=== PATIENT | male | born 1965 | race Caucasian/White ===

== ENCOUNTER 2024-10-10 17:46 | Inpatient (IN) | payer OTHER ==
[~2024-10-10] VITALS: Ht 175.3 cm; Wt 112.9 kg
[2024-10-10 18:25] LABS: IMMATURE GRANULOCYTE ABSOLUTE 0.03 K/uL (0-1); NUCLEATED RED BLOOD CELLS 0.0 % (0.0-0.19); PLATELET COUNT (AUTO) 225 K/uL (130-400); RED BLOOD CELL COUNT(AUTO) 5.14 MIL/uL (4.50-6.20); RED CELL DISTRIBUTION WIDTH 12.8 % (11.0-15.5); WHITE BLOOD COUNT (AUTO) 7.7 K/uL (4.8-10.8)
[2024-10-10 18:34] LABS: CREATININE 0.7 mg/dL (0.5-1.3); GLOMERULAR FILTR. RATE CALC 105.0 mL/min (>90); GLUCOSE,RANDOM 219.0 mg/dL (70-105); SODIUM SERUM 139.0 mmol/L (136-145); UREA NITROGEN, BLOOD 8.0 mg/dL (7-18)
--- NOTE | 2024-10-10 18:48 | HMCIMG ---
EXAM: CT Head Without IV contrast. CLINICAL HISTORY: Slurred speech, extremity numbness TECHNIQUE: Axial computed tomography images of the head/brain without intravenous contrast. COMPARISON: None provided. FINDINGS: BRAIN: Atrophy slightly greater than expected for patient's age No evidence of acute hemorrhage. No mass lesion. No CT evidence for acute territorial infarct. No midline shift or extra-axial collections. VENTRICLES: No hydrocephalus. ORBITS: The orbits are unremarkable. SINUSES AND MASTOIDS: The paranasal sinuses and mastoid air cells are clear. BONES: No fracture. SOFT TISSUES: Unremarkable. IMPRESSION: No acute intracranial abnormality. /[place]
[2024-10-10 19:36] LABS: APPEARANCE,URINE CLEAR (CLEAR); GLUCOSE, URINE (UA) 30 mg/dL (NEGATIVE); LEUKOCYTE ESTERASE ,URINE NEGATIVE Leu/uL (NEGATIVE); NITRATE,URINE NEGATIVE (NEGATIVE); OCCULT BLOOD,URINE NEGATIVE (NEGATIVE)
[2024-10-10 19:42] LABS: AMPHET/METH SCREEN,URINE NEGATIVE (NEGATIVE); BARBITURATE SCREEN, URINE NEGATIVE (NEGATIVE); CANNABINOID SCREEN,URINE NEGATIVE (NEGATIVE); COCAINE SCREEN,URINE NEGATIVE (NEGATIVE)
--- NOTE | 2024-10-10 20:05 | ERN ---
General Chief Complaint: Numbness Stated Complaint: PARESTHESIA Time Seen by MD: 17:52 Time Seen by Midlevel: 17:52 Source: patient History of Present Illness Initial Comments 59-year-old male presents to the emergency due to numbness onset two days. Patient reports upper extremity numbness and weakness, decreased sensation to the face, headache, slurred speech. Patient's friend at bedside stating that this is not his usual self and that patient is talking slow. Patient denies any chest pain, difficulty breathing, vision change or further associated symptoms. Patient states he has a history of DM and HTN but does not have a primary care doctor in the [facility] therefore gets his medication from [place]. Allergies: Coded Allergies: No Known Allergies (Unverified Allergy, Unknown, 10/10/24) Past Medical History Past Medical History: Diabetes-Type II Past Surgical History: None ROS Dictation Constitutional: Negative for fever,chills, and weight loss Eyes: Negative for injury, pain,redness, and discharge ENT: Negative for injury,pain or swelling Cardiovascular: Negative for chest pain, palpitations, and edema Respiratory: Negative for shortness of breath, cough, and wheezing, Abdomen/GI: Negative for abdominal pain, nausea, vomiting, diarrhea, and co nstipation Back: Negative for injury and pain : Negative for painful urination, bleeding or discharge MS/Extremity: Negative for injury and deformity Skin: Negative for rash, and discoloration Neuro: Positive for headache, generalized weakness, upper extremity numbness. Negative for tingling, and seizure Psych: Negative for suicide ideation, homicidal ideation, and hallucinations Physical Exam Physical Exam Dictation General: awake, alert, no acute distress Head/Face: Normocephalic, atraumatic Eyes: PERRL, EOMI, normal conjunctiva ENT: oral cavity clear, oral mucosa moist Neck: Supple, normal range of motion Cardiovascular: RRR, normal S1/S2 Respiratory: CTAB, no respiratory distress, no rales or wheezes Abdomen: Soft, non-tender, non-distended, no guarding or rebound. Skin: Warm, dry, normal turgor, no rash MS/Extremity: Pulses equal, no cyanosis, neurovascular intact, FROM Neuro: COAx4, GCS 15, strength 5/5, CN 2-12 intact, normal cerebellar exam Psych: Normal behavior, mood, and affect normal Results Laboratory and Microbiology Lab and Micro Result Laboratory Tests Test 10/10/24 18:12 10/10/24 19:13 White Blood Count 7.7 K/uL (4.8-10.8) Red Blood Count 5.14 MIL/uL (4.50-6.20) Hemoglobin 15.5 g/dL (14.0-18.0) Hematocrit 45.5 % (42-54) Mean Corpuscular Volume 88.5 fL (79-99) Mean Corpuscular Hemoglobin 30.2 pg (27.0-33.0) Mean Corpuscular Hemoglobin Concent 34.1 g/dL (32.0-36.0) Red Cell Distribution Width 12.8 % (11.0-15.5) Platelet Count 225 K/uL (130-400) Mean Platelet Volume 10.1 fL (7.5-10.5) Immature Granulocyte % (Auto) 0.4 % (0-1) Neutrophils (%) (Auto) 56.5 % (40.0-77.0) Lymphocytes (%) (Auto) 34.9 % (21.0-51.0) Monocytes (%) (Auto) 6.6 % (3.0-13.0) Eosinophils (%) (Auto) 1.2 % (0.0-8.0) Basophils (%) (Auto) 0.4 % (0.0-5.0) Neutrophils # (Auto) 4.4 K/uL (1.8-7.7) Lymphocytes # (Auto) 2.7 K/uL (1.0-4.8) Monocytes # (Auto) 0.5 K/uL (0.1-1.0) Eosinophils # (Auto) 0.09 K/uL (0.00-0.70) Basophils # (Auto) 0.03 K/uL (0.00-0.20) Absolute Immature Granulocyte (auto 0.03 K/uL (0-1) Nucleated Red Blood Cells 0.0 % (0.0-0.19) Sodium Level 139 mmol/L (136-145) Potassium Level 4.4 mmol/L (3.5-5.1) Chloride Level 102 mmol/L (101-111) Carbon Dioxide Level 33 mmol/L (21-32) H Blood Urea Nitrogen 8 mg/dL (7-18) Creatinine 0.7 mg/dL (0.5-1.3) Glomerular Filtration Rate Calc 105 mL/min (>90) Random Glucose 219 mg/dL (70-105) H Total Calcium 9.3 mg/dL (8.5-10.1) Troponin I High Sensitivity 7 ng/L (4-75) Urine Color LIGHT-YELLOW (YELLOW) Urine Appearance CLEAR (CLEAR) Urine pH 6.0 (5.0-8.0) Urine Specific [place] 1.007 (1.001-1.031) Urine Protein NEGATIVE mg/dL (NEGATIVE) Urine Glucose (UA) 30 mg/dL (NEGATIVE) H Urine Ketones NEGATIVE mg/dL (NEGATIVE) Urine Occult Blood NEGATIVE (NEGATIVE) Urine Nitrate NEGATIVE (NEGATIVE) Urine Bilirubin NEGATIVE mg/dL (NEGATIVE) Urine Urobilinogen 0.2 mg/dL (0.2-1.0) Urine Leukocyte Esterase NEGATIVE Hiram/uL Urine Opiates Screen NEGATIVE (NEGATIVE) Urine Barbiturates Screen NEGATIVE (NEGATIVE) Urine Phencyclidine Screen NEGATIVE (NEGATIVE) Urine Amphetamines Screen NEGATIVE (NEGATIVE) Urine Benzodiazepines Screen NEGATIVE (NEGATIVE) Urine Cocaine Screen NEGATIVE (NEGATIVE) Urine Marijuana (THC) Screen NEGATIVE (NEGATIVE) Labs Reviewed?: Yes EKG/XRAY/US/CT/MRI EKG Comment Date: 10/10/2024 Time: 1758 Rate: 93 EKG interpretation: Sinus rhythm, inferior infarct old, no STEMI Reviewed by ED Attending CT Scan Comment REASON: Slurred speech, extremity numbness ORDERING PHYSICIAN: CARRIE GONSALEZ PROCEDURE: HEAD WO - CT HEAD/BRAIN W/O CONTRAST EXAM: CT Head Without IV contrast. CLINICAL HISTORY: Slurred speech, extremity numbness TECHNIQUE: Axial computed tomography images of the head/brain without intravenous contrast. COMPARISON: None provided. FINDINGS: BRAIN: Atrophy slightly greater than expected for patient's age No evidence of acute hemorrhage. No mass lesion. No CT evidence for acute territorial infarct. No midline shift or extra-axial collections. VENTRICLES: No hydrocephalus. ORBITS: The orbits are unremarkable. SINUSES AND MASTOIDS: The paranasal sinuses and mastoid air cells are clear. BONES: No fracture. SOFT TISSUES: Unremarkable. IMPRESSION: No acute intracranial abnormality. /[place] DICTATED BY: GERI TIRADO MDM: Differential diagnosis: CVA, TIA, neuropathy Rationale: 59-year-old male presents to the emergency due to numbness onset two days. Patient reports upper extremity numbness and weakness, decreased sensation to the face, headache, slurred speech. Patient's friend at bedside stating that this is not his usual self and that patient is talking slow. Patient denies any chest pain, difficulty breathing, vision change or further associated symptoms. Patient states he has a history of DM and HTN but does not have a primary care doctor in the [place] states therefore gets his medication from [place]. Per physical examination no neurological deficits noted. NIH score of 0. Labs obtained CBC and chemistry are nonspecific. Troponin within normal limits. UA negative for urinary tract infection. Toxicology screen negative. On initial vitals patient's blood pressure was 188/93 on recheck patient's blood pressure was 154/82. Patient stated he was very nervous upon arrival and has been having a lot of stress. CT head obtained indicating atrophy slightly greater than expected for patient's age otherwise no acute intracranial abnormalities. Patient was administered acetaminophen due to a headache. Patient was educated on findings, diagnosis, decision for admission. Patient verbalized understanding agrees with admission. Case was discussed with hospitalist who accepted admission. Previous outside records reviewed: Old ER visits. Risk of complication and/or morbidity or mortality of patient management: None Medications-Per medication reconciliation Need for hospitalization: Patient does meet criteria for hospitalization. Need for emergency major/minor surgery: No There are no social concerns with this patient. Prescription drug management Prescriptions will include symptomatic care Patient's prior external medical records from other ER visits were reviewed by me as indicated. Prior testing and results from previous visits were reviewed. Prior tests were taken into account with medical decision making and resource utilization, independent historian/historians were used to obtain complete medical history. I independently interpreted the test that were performed, results were reviewed by me and considered findings on radiology if ordered. Medical management and examination interpretation discussions were had by me with other qualified healthcare professionals as indicated for the patient's care. ED Course Orders Procedure Category Date Status Time Cbc With Differential LAB 10/10/24 Complete 18: Basic Metabolic Panel LAB 10/10/24 Complete 18: Urinalysis LAB 10/10/24 In Process W/Microscopic 18:02 Drug Screen Urine LAB 10/10/24 In Process 18:02 Ct Head/Brain W/O CT 10/10/24 Resulted Contrast 18:02 12 Lead Ekg Tracing- EKG 10/10/24 Logged Technical 18:02 Troponin I High LAB 10/10/24 Complete Sensitivity 18:02 Hydralazine 20mg Inj PHA 10/10/24 Complete (Apresoline 20mg In 19:30 Current Medications Medications (Trade) Dose Ordered Sig/Liudmila Route PRN Reason Start Time Stop Time Status Last Admin Dose Admin Hydralazine HCl (APRESOLine 20MG INJ) 10 mg ONCE ONCE IV 10/10/24 19:30 10/10/24 19:31 DC Vital Signs Date Time Temp Pulse Resp B/P (MAP) Pulse Ox O2 Delivery O2 Flow Rate FiO2 10/10/24 19:17 99.1 84 18 154/82 98 Room Air* 0 21 10/10/24 17:48 99.0 93 16 188/93 98 Room Air 0 Critical Care Note Critical Time: 30 minutes Comments Critical Care Procedure Note Authorized and Performed by: me Total critical care time: Approximately 36 minutes Due to a high probability of clinically significant, life threatening deterioration, the patient required my highest level of preparedness to intervene emergently and I personally spent this critical care time directly and personally managing the patient. This critical care time included obtaining a history; examining the patient; pulse oximetry; ordering and review of studies; arranging urgent treatment with development of a management plan; evaluation of patient's response to treatment; frequent reassessment; and, discussions with other providers. This critical care time was performed to assess and manage the high probability of imminent, life-threatening deterioration that could result in multi-organ failure. It was exclusive of separately billable procedures and treating other patients and teaching time. Please see MDM section and the rest of the note for further information on patient assessment and treatment. DX & DISP Disposition: Inpatient Decision to Admit Date: Oct 10, 2024 Departure Impression: Primary Impression: Stroke-like symptoms Condition: Stable Referrals: SELF,REFERRAL (PCP) I performed the substantive portion of the visit. I have reviewed and personally made and approve the management plan that is documented in the notes by myself or the [facility]. I acknowledge full responsibility for the patient's management plan. CARRIE GONSALEZ Oct 10, 2024 20:05
[2024-10-10 20:11] LABS: SQUAMOUS EPITHELIAL CELL,UR RARE /HPF (0-2)
--- NOTE | 2024-10-10 21:31 | HP ---
[facility] HISTORY AND PHYSICAL Date of Service: Oct 10, 2024 Time of Service: 21:31 Attending/supervising physician: Dr. Perdue and Dr. Carroll HISTORY OF PRESENT ILLNESS: Mr. Escobar is a 59-year-old male with a history of HTN, dm, history of left ear infections, seasonal allergies with chronic nose spray, and chronic lower back pain use who presented to [facility] for evaluation of stroke-like symptoms onset two days. The patient reported of numbness and weakness to bilateral upper extremity, decreased sensation to the face, headache, slurred speech onset two days. Patient's friend at bedside stating that this is not his usual self and that patient is talking slow. Patient denied any chest pain, difficulty breathing, vision change or further associated symptoms. Patient stated but does not have a primary care doctor in the [facility] therefore gets his medication from [place]. The patient's friend reports decreased appetite after Tirzepatide use which he got at [place]. ED provider reports on arrival the patient stated he was very nervous and has been having a lot of stress. Initial vitals patient's blood pressure was 188/93 on recheck patient's blood pressure was 154/82. The patient had no neurological deficits noted. NIH score of 0. Labs: CBC and chemistry are nonspecific. Troponin within normal limits. UA negative for urinary tract infection. Toxicology screen negative. CT head obtained indicating atrophy slightly greater than expected for patient's age otherwise no acute intracranial abnormalities. Patient was administered acetaminophen due to a headache. ED provider request patient be admitted with stroke-like symptoms. The patient was admitted under the [facility] Hospitalist team. I assessed the patient at bedside. Significant other was at bedside. The patient's breathing was even, unlabored, in no distress. NIH 0. He reported he is still had numbness and tingling to the tip of his fingers. Denied any other neurological deficits. I informed him of labs, diagnostics, and plan of care. He verbalized understanding and is in agreement with the plan. Plan and assessment are listed below. REVIEW OF SYSTEMS 12-point ROS reviewed with the patient. All pertinent positives mentioned above. Otherwise negative, noncontributory, non-pertinent. PAST MEDICAL HISTORY: As mentioned above PAST SURGICAL HISTORY: None PAST SOCIAL HISTORY: Denied alcohol, tobacco, illicit drug use. FAMILY HISTORY: Noncontributory Coded Allergies: No Known Allergies (Unverified Allergy, Unknown, 10/10/24) PHYSICAL EXAM GENERAL APPEARANCE: The patient is awake, alert, and oriented, in no acute cardiopulmonary distress. NEUROLOGICAL: Cranial nerves II-XII grossly intact. Motor is 5/5 in bilateral upper and lower extremities proximal to distal. No sensory deficits. HEENT: Face is symmetric. Pupils are equal and reactive. Extraocular movements are intact. NECK: Supple. No JVD. No thyromegaly. No submental, submandibular, pre- /postauricular, occipital or supraclavicular lymphadenopathy. CHEST: Normal chest expansion. No Telemetry. LUNGS: Absence of any rales, rhonchi or any wheezing. CARDIOVASCULAR: Regular. S1 and S2 normal. No appreciable rubs, murmurs or gallops. ABDOMEN: Soft, obese, nontender, and nondistended. There is no rebound, voluntary guarding, or rigidity. : Deferred. No Keith. EXTREMITIES: Non-edematous and not cyanotic. No clubbing. Good capillary refill. SKIN: No skin breakdown. Vital Sign (Last 24 Hours) 10/10/24 20:19 Temp 98.8 Pulse 81 Resp 18 B/P (MAP) 140/83 Pulse Ox 98 O2 Delivery Room Air* O2 Flow Rate 0 FiO2 21 LABS: Laboratory: Test 10/10/24 19:13 10/10/24 18:12 Range/Units Urine Color LIGHT-YELLOW YELLOW Urine Appearance CLEAR CLEAR Urine pH 6.0 5.0-8.0 Urine Specific [place] 1.007 1.001-1.031 Urine Protein NEGATIVE NEGATIVE mg/dL Urine Glucose (UA) 30 H NEGATIVE mg/dL Urine Ketones NEGATIVE NEGATIVE mg/dL Urine Occult Blood NEGATIVE NEGATIVE Urine Nitrate NEGATIVE NEGATIVE Urine Bilirubin NEGATIVE NEGATIVE mg/dL Urine Urobilinogen 0.2 0.2-1.0 mg/dL Urine Leukocyte Esterase NEGATIVE NEGATIVE Hiram/uL Urine RBC None 0-1 /HPF Urine WBC 0-1 0-1 /HPF Urine Squamous Epithelial Cells RARE 0-2 /HPF Urine Bacteria None None Seen /HPF Urine Opiates Screen NEGATIVE NEGATIVE Urine Barbiturates Screen NEGATIVE NEGATIVE Urine Phencyclidine Screen NEGATIVE NEGATIVE Urine Amphetamines Screen NEGATIVE NEGATIVE Urine Benzodiazepines Screen NEGATIVE NEGATIVE Urine Cocaine Screen NEGATIVE NEGATIVE Urine Marijuana (THC) Screen NEGATIVE NEGATIVE White Blood Count 7.7 4.8-10.8 K/uL Red Blood Count 5.14 4.50-6.20 MIL/uL Hemoglobin 15.5 14.0-18.0 g/dL Hematocrit 45.5 42-54 % Mean Corpuscular Volume 88.5 79-99 fL Mean Corpuscular Hemoglobin 30.2 27.0-33.0 pg Mean Corpuscular Hemoglobin Concent 34.1 32.0-36.0 g/dL Red Cell Distribution Width 12.8 11.0-15.5 % Platelet Count 225 130-400 K/uL Mean Platelet Volume 10.1 7.5-10.5 fL Immature Granulocyte % (Auto) 0.4 0-1 % Neutrophils (%) (Auto) 56.5 40.0-77.0 % Lymphocytes (%) (Auto) 34.9 21.0-51.0 % Monocytes (%) (Auto) 6.6 3.0-13.0 % Eosinophils (%) (Auto) 1.2 0.0-8.0 % Basophils (%) (Auto) 0.4 0.0-5.0 % Neutrophils # (Auto) 4.4 1.8-7.7 K/uL Lymphocytes # (Auto) 2.7 1.0-4.8 K/uL Monocytes # (Auto) 0.5 0.1-1.0 K/uL Eosinophils # (Auto) 0.09 0.00-0.70 K/uL Basophils # (Auto) 0.03 0.00-0.20 K/uL Absolute Immature Granulocyte (auto 0.03 0-1 K/uL Nucleated Red Blood Cells 0.0 0.0-0.19 % Sodium Level 139 136-145 mmol/L Potassium Level 4.4 3.5-5.1 mmol/L Chloride Level 102 101-111 mmol/L Carbon Dioxide Level 33 H 21-32 mmol/L Blood Urea Nitrogen 8 7-18 mg/dL Creatinine 0.7 0.5-1.3 mg/dL Glomerular Filtration Rate Calc 105 >90 mL/min Random Glucose 219 H 70-105 mg/dL Total Calcium 9.3 8.5-10.1 mg/dL Troponin I High Sensitivity 7 4-75 ng/L DIAGNOSTICS / RADIOLOGY: [ ] ASSESSMENT: Stroke-like symptoms (paresthesia and weakness to BUE, reported slow/slurred speech, decreased sensation to the face, headache) Atrophy slightly greater than expected for patient's age, per CT of head without contrast on 10/10/2024 Acute headache, POA Diabetes mellitus with hyperglycemia Anorexia, POA, recent Tirzepatide use Elevated bicarbonate per venous lab on 10/10/2021 Uncontrolled hypertension History of left ear infection History of chronic seasonal allergies/nasal congestion on chronic nasal spray Anxiety reaction Chronic lower back pain Obesity, BMI 36.2 PLAN: -Admit to medical floor with continuous telemetry monitoring. -Neurological checks every 4 hours and as needed. -Antiplatelet therapy with Aspirin. -Atorvastatin 40 mg p.o. daily. -Blood pressure checks every 4 hours and as needed. -Systolic blood pressure between 120 to 160 to maintain adequate brain perfusion. -Keep NPO for now until passes dysphagia screen by nurse. -MRI of brain without contrast. MRA head without contrast, MRA neck pending to be done in a.m. -Pending Echo complete with spectral + color Doppler to be done in am. -Consult neurology in a.m. -Obtain ABGs, COVID, influenza swabs. -Reconcile home medications once available. -Glucometer checks before meals and at bedtime with regular insulin sliding scale as needed -Education on diabetic/low fat diet. -PT/OT evaluation. -Speech/swallow evaluation -PRN medications for pain, N/V, constipation, fever, hypertension -AM labs: CBC, CMP, mag, phos, TSH, A1C, Vitamin B12, fibrinogen, folate level, lipid panel. -Monitor renal and liver function -Monitor electrolytes and treat accordingly PRN -GI and DVT prophylaxis. -Further plan/orders per hospitalization course. ADVANCED CARE PLANNING 1. Which of the following were discussed? Hospice Care - No Therapeutic options - Yes Advance Directives - Yes 2. Discussed with who? Patient 3. Voluntary nature of this service was explained to the patient? Yes 4. Amount of time spent - __ Over 35 minutes 5. Reviewed by Physician? (if this service was performed by [facility]) Yes ATTESTATION BY PHYSICIAN I have seen and examined the patient. I reviewed the documentation, medical decision making, and treatment plan as noted by the mid-level provider above. I agree with the findings and plan of care. KWAN BATRES [facility] Oct 10, 2024 21:31
[2024-10-10] MEDS: ASPIRIN 81MG CHEW TAB PO ONE (22:34)
[2024-10-10] MEDS: 0.9%NACL 1000ML 1,000 ML IV SCH (22:49)
[2024-10-11 02:12] LABS: ABG BASE EXCESS 0.4 mmol/L (-2.0-3.0); ABG HCO3 24.6 mmol/L (21.0-28.0); ABG OXYGEN SATURATION 95.2 % (94.0-98.0); ABG PCO2 38 mmHg (35-48); ABG PH 7.426 (7.350-7.450); DEVICE COMMENT ER RN, RR; PO2, ARTERIAL BG 73.9 mmHg (83.0-108.0); TEMPERATURE, CELSIUS BG 37.0 CELSIUS (35.5-37.0); VENT MODE, BG RA (ROOM AIR)
[2024-10-11 05:00] LABS: SARS-CoV-2, RNA, NAAT NEGATIVE SARS CoV-2 (NEGATIVE)
[2024-10-11 05:06] LABS: INFLUENZA TYPE A Negative For Type A (NEGATIVE); INFLUENZA TYPE B Negative For Type B (NEGATIVE)
--- NOTE | 2024-10-11 06:32 | EKG ---
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
[2024-10-11 07:08] LABS: NUCLEATED RED BLOOD CELLS 0.0 % (0.0-0.19); PLATELET COUNT (AUTO) 206.0 K/uL (130-400); RED BLOOD CELL COUNT(AUTO) 4.9 MIL/uL (4.50-6.20); RED CELL DISTRIBUTION WIDTH 12.9 % (11.0-15.5); WHITE BLOOD COUNT (AUTO) 6.6 K/uL (4.8-10.8)
[2024-10-11 08:00] LABS: ASPARTATE AMINOTRANSFERASE 10.0 U/L (10-37); CREATININE 0.7 mg/dL (0.5-1.3); GLOMERULAR FILTR. RATE CALC 105.0 mL/min (>90); GLUCOSE,RANDOM 175.0 mg/dL (70-105); LDL DIRECT 87.0 mg/dL (0-99); PHOSPHORUS 4.5 mg/dL (2.5-4.9); SODIUM SERUM 139.0 mmol/L (136-145); TOTAL PROTEIN, SERUM 6.8 g/dL (6.0-8.3); UREA NITROGEN, BLOOD 7.0 mg/dL (7-18)
[2024-10-11] MEDS: FAMOTIDINE 20MG TAB PO SCH (09:00)
[2024-10-11] MEDS: ASPIRIN 81MG CHEW TAB PO SCH (09:00)
--- NOTE | 2024-10-11 09:27 | NUR ---
DCP: HOME Pt currently lives with miguel angel Escobar [phone]. Pt states that he is originally from [place] however spends 6 months out the year here and then goes back. Pt states that he will be in the [place] until [place]. Pt does not have any DME, home health, or provider services. Pt states that he does not have a PCP nor has had one in about 10-12 years. Pt states that he is a and will consider trying to go to the [place] any care [place]. [place] pt will want to go home and family can assist with transportation. Addendum: 10/11/24 at 0930 by JASON SILVERIO SS Amended: Links added.
--- NOTE | 2024-10-11 11:35 | NUR ---
GAVE REPORT TO JOE YATES, PATIENT WAS TRANSPORTED VIA WHEELCHAIR ALONG WITH HIS PERSONAL BELONGINGS.
[2024-10-11 12:00] VITALS: BP 150/78; PULSE 86; RESP 19; TEMP 98
--- NOTE | 2024-10-11 12:00 | NUR ---
PT ARRIVED TO UNIT VIA WHEELCHAIR. DENIES ANY PAIN AT THE MOMENT. STATES HAS VERY MINIMAL TINGLING IN FINGERS. BED POSITIONED IN LOWEST POSITION CALL LIGHT WITH IN REACH. PT AWARE OF NPO. UNTIL BEDSIDE SWALLOW PASS.
--- NOTE | 2024-10-11 13:15 | PN ---
[facility] PROGRESS NOTE Date of Service: Oct 11, 2024 Time of Service: 13:[address] Gonzalez SUBJECTIVE: [10/10 Mr. Escobar is a 59-year-old male with a history of HTN, dm, history of left ear infections, seasonal allergies with chronic nose spray, and chronic lower back pain use who presented to [facility] for evaluation of stroke-like symptoms onset two days. The patient reported of numbness and weakness to bilateral upper extremity, decreased sensation to the face, headache, slurred speech onset two days. Patient's friend at bedside stating that this is not his usual self and that patient is talking slow. Patient denied any chest pain, difficulty breathing, vision change or further associated symptoms. Patient stated but does not have a primary care doctor in the [place] therefore gets his medication from [place]. The patient's friend reports decreased appetite after Tirzepatide use which he got at [place]. ED provider reports on arrival the patient stated he was very nervous and has been having a lot of stress. Initial vitals patient's blood pressure was 188/93 on recheck patient's blood pressure was 154/82. The patient had no neurological deficits noted. NIH score of 0. Labs: CBC and chemistry are nonspecific. Troponin within normal limits. UA negative for urinary tract infection. Toxicology screen negative. CT head obtained indicating atrophy slightly greater than expected for patient's age otherwise no acute intracranial abnormalities. Patient was administered acetaminophen due to a headache. ED provider request patient be admitted with stroke-like symptoms. The patient was admitted under the [facility] Hospitalist team. 10/11 patient was seen by nurse practitioner and physician during rounding in room 307. We will consult neurologist for possible TIA versus stroke. Home medication to be reconciled once entered by RN in the computer. Head CT, brain MRI, neck MRA brain MRA, 2D echo, ultrasound Doppler carotid is still pending. Neurologist was consulted. At this moment we are pending recommendation. We will continue to monitor patient in the meantime. A.m. labs] REVIEW OF SYSTEMS 12-point ROS reviewed with the patient. All pertinent positives mentioned above. Otherwise negative, noncontributory, non-pertinent. PHYSICAL EXAM GENERAL APPEARANCE: The patient is awake, alert, and oriented, in no acute cardiopulmonary distress. NEUROLOGICAL: Cranial nerves II-XII grossly intact. Motor is 5/5 in bilateral upper and lower extremities proximal to distal. No sensory deficits. HEENT: Face is symmetric. Pupils are equal and reactive. Extraocular movements are intact. NECK: Supple. No JVD. No thyromegaly. No submental, submandibular, pre- /postauricular, occipital or supraclavicular lymphadenopathy. CHEST: Normal chest expansion. No Telemetry. LUNGS: Absence of any rales, rhonchi or any wheezing. CARDIOVASCULAR: Regular. S1 and S2 normal. No appreciable rubs, murmurs or gallops. ABDOMEN: Soft, obese, nontender, and nondistended. There is no rebound, voluntary guarding, or rigidity. : Deferred. No Keith. EXTREMITIES: Non-edematous and not cyanotic. No clubbing. Good capillary refill. SKIN: No skin breakdown. Vital Signs (last 8hr) Date Time Temp Pulse Resp B/P (MAP) Pulse Ox O2 Delivery O2 Flow Rate FiO2 10/11/24 12:00 98.1 86 19 150/78 98 Room Air LABS: Laboratory: Test 10/11/24 06:42 10/11/24 04:35 10/11/24 02:11 10/10/24 19:13 Range/Units White Blood Count 6.6 4.8-10.8 K/uL Red Blood Count 4.90 4.50-6.20 MIL/uL Hemoglobin 14.7 14.0-18.0 g/dL Hematocrit 44.4 42-54 % Mean Corpuscular Volume 90.6 79-99 fL Mean Corpuscular Hemoglobin 30.0 27.0-33.0 pg Mean Corpuscular Hemoglobin Concent 33.1 32.0-36.0 g/dL Red Cell Distribution Width 12.9 11.0-15.5 % Platelet Count 206 130-400 K/uL Mean Platelet Volume 10.0 7.5-10.5 fL Nucleated Red Blood Cells 0.0 0.0-0.19 % Fibrinogen 446 H 180-350 mg/dL Sodium Level 139 136-145 mmol/L Potassium Level 3.7 3.5-5.1 mmol/L Chloride Level 102 101-111 mmol/L Carbon Dioxide Level 31 21-32 mmol/L Blood Urea Nitrogen 7 7-18 mg/dL Creatinine 0.7 0.5-1.3 mg/dL Glomerular Filtration Rate Calc 105 >90 mL/min Random Glucose 175 H 70-105 mg/dL Total Calcium 8.8 8.5-10.1 mg/dL Phosphorus Level 4.5 2.5-4.9 mg/dL Magnesium Level 1.70 L 1.80-2.40 mg/dL Total Bilirubin 0.8 0.2-1.0 mg/dL Aspartate Amino Transf (AST/SGOT) 10 10-37 U/L Alanine Aminotransferase (ALT/SGPT) 14 12-78 U/L Alkaline Phosphatase 63 50-136 U/L Total Protein 6.8 6.0-8.3 g/dL Albumin 3.4 L 3.5-5.0 g/dL Triglycerides Level 175 30-200 mg/dL Cholesterol Level 152 <200 mg/dL LDL Cholesterol 87 0-99 mg/dL HDL Cholesterol 45 29-71 mg/dL Vitamin B12 Level 1586 H 193-986 pg/mL Folic Acid (LAB) 14.40 2-20 ng/mL Thyroid Stimulating Hormone (TSH) 3.65 0.36-3.74 uIU/mL Influenza Type A Antigen Negative For Type A NEGATIVE Influenza Type B Antigen Negative For Type B NEGATIVE SARS-CoV-2, RNA, NAAT NEGATIVE SARS CoV-2 NEGATIVE Blood Gas Specimen Type Arterial Arterial Blood pH 7.426 7.350-7.450 Arterial Blood Partial Pressure CO2 38 35-48 mmHg Arterial Blood Partial Pressure O2 73.9 L 83.0-108.0 mmHg Arterial Blood HCO3 24.6 21.0-28.0 mmol/L Arterial Blood Oxygen Saturation 95.2 94.0-98.0 % Arterial Blood Base Excess 0.4 -2.0-3.0 mmol/L Blood Gas Temperature 37.0 35.5-37.0 CELSIUS Blood Gas Vent Mode RA ROOM AIR FiO2 21.0 % Blood Gas Specimen Comment SHIPFITTER APPRENTICE, RR Urine Color LIGHT-YELLOW YELLOW Urine Appearance CLEAR CLEAR Urine pH 6.0 5.0-8.0 Urine Specific [place] 1.007 1.001-1.031 Urine Protein NEGATIVE NEGATIVE mg/dL Urine Glucose (UA) 30 H NEGATIVE mg/dL Urine Ketones NEGATIVE NEGATIVE mg/dL Urine Occult Blood NEGATIVE NEGATIVE Urine Nitrate NEGATIVE NEGATIVE Urine Bilirubin NEGATIVE NEGATIVE mg/dL Urine Urobilinogen 0.2 0.2-1.0 mg/dL Urine Leukocyte Esterase NEGATIVE NEGATIVE Hiram/uL Urine RBC None 0-1 /HPF Urine WBC 0-1 0-1 /HPF Urine Squamous Epithelial Cells RARE 0-2 /HPF Urine Bacteria None None Seen /HPF Urine Opiates Screen NEGATIVE NEGATIVE Urine Barbiturates Screen NEGATIVE NEGATIVE Urine Phencyclidine Screen NEGATIVE NEGATIVE Urine Amphetamines Screen NEGATIVE NEGATIVE Urine Benzodiazepines Screen NEGATIVE NEGATIVE Urine Cocaine Screen NEGATIVE NEGATIVE Urine Marijuana (THC) Screen NEGATIVE NEGATIVE Test 10/10/24 18:12 Range/Units Immature Granulocyte % (Auto) 0.4 0-1 % Neutrophils (%) (Auto) 56.5 40.0-77.0 % Lymphocytes (%) (Auto) 34.9 21.0-51.0 % Monocytes (%) (Auto) 6.6 3.0-13.0 % Eosinophils (%) (Auto) 1.2 0.0-8.0 % Basophils (%) (Auto) 0.4 0.0-5.0 % Neutrophils # (Auto) 4.4 1.8-7.7 K/uL Lymphocytes # (Auto) 2.7 1.0-4.8 K/uL Monocytes # (Auto) 0.5 0.1-1.0 K/uL Eosinophils # (Auto) 0.09 0.00-0.70 K/uL Basophils # (Auto) 0.03 0.00-0.20 K/uL Absolute Immature Granulocyte (auto 0.03 0-1 K/uL Hemoglobin A1c 11.0 H 4.0-6.0 % Estimated Average Glucose (eAG) 269 H 70-126 mg/dL Troponin I High Sensitivity 7 4-75 ng/L Current Medications Medications (Trade) Dose Ordered Sig/Liudmila Route PRN Reason Start Time Stop Time Status Last Admin Dose Admin Acetaminophen (TYLenol 325MG TAB) 650 mg Q6H PRN PO FOR TEMP GREATER THAN 99.5 F* 10/10/24 22:30 11/09/24 22:29 Acetaminophen (TYLenol 325MG TAB) 650 mg Q6H PRN PO MILD PAIN (1-3) 10/10/24 22:30 11/09/24 22:29 Acetaminophen (TYLenol 650MG SUPPOSITORY) 650 mg Q6H PRN RC FOR MILD PAIN 1-3 IF NPO 10/10/24 22:30 11/09/24 22:29 Acetaminophen (TYLenol 650MG SUPPOSITORY) 650 mg Q6H PRN RC TEMP GREATER THEN 99.5 IF NPO 10/10/24 22:30 11/09/24 22:29 Aspirin (Aspirin 81mg Chew Tab) 81 mg DAILY PO 10/11/24 09:00 11/10/24 08:59 Atorvastatin Calcium (LIPItor 40MG) 40 mg HS PO 10/10/24 22:30 11/09/24 22:29 10/10/24 22:34 40 MG Docusate Sodium (COLace 100MG CAP) 100 mg BID PRN PO CONSTIPATION 10/10/24 22:30 11/09/24 22:29 Famotidine (Pepcid 20mg Tab) 20 mg BID PO 10/11/24 09:00 11/10/24 08:59 Magnesium Sulfate 50 ml @ 0 mls/hr PROTOCOL IV 10/11/24 13:30 11/10/24 13:29 UNV Ondansetron HCl (zoFRAN 4MG INJ) 4 mg Q8H PRN IVP NAUSEA/VOMITING 10/10/24 22:30 11/09/24 22:29 Sodium Chloride 1,000 ml @ 100 mls/hr AD IV 10/10/24 22:30 11/09/24 22:29 10/10/24 22:49 100 MLS/HR DIAGNOSTICS / RADIOLOGY: [ ] ASSESSMENT: Stroke-like symptoms (paresthesia and weakness to BUE, reported slow/slurred speech, decreased sensation to the face, headache) Atrophy slightly greater than expected for patient's age, per CT of head without contrast on 10/10/2024 Acute headache, POA Diabetes mellitus with hyperglycemia Anorexia, POA, recent Tirzepatide use Elevated bicarbonate per venous lab on 10/10/2021 Uncontrolled hypertension History of left ear infection History of chronic seasonal allergies/nasal congestion on chronic nasal spray Anxiety reaction Chronic lower back pain Obesity, BMI 36.2 PLAN: -continue in medical floor with continuous telemetry monitoring. Consult neurologist Replace magnesium and potassium per protocol -Neurological checks every 4 hours and as needed. -Antiplatelet therapy with Aspirin. -Atorvastatin 40 mg p.o. daily. -Blood pressure checks every 4 hours and as needed. -Systolic blood pressure between 120 to 160 to maintain adequate brain perfusion. -Keep NPO for now until passes dysphagia screen by nurse. -MRI of brain without contrast. Pending MRA head without contrast, pending MRA neck pending 2D echo pending Ultrasound carotid pending Head CT pending -Obtain ABGs, COVID, influenza swabs. -Reconcile home medications once available. -Glucometer checks before meals and at bedtime with regular insulin sliding scale as needed -Education on diabetic/low fat diet. -PT/OT evaluation. -Speech/swallow evaluation -PRN medications for pain, N/V, constipation, fever, hypertension -AM labs: CBC, CMP, mag, phos, TSH, A1C, Vitamin B12, fibrinogen, folate level, lipid panel. -Monitor renal and liver function -Monitor electrolytes and treat accordingly PRN -GI and DVT prophylaxis. -Further plan/orders per hospitalization course. ATTESTATION BY PHYSICIAN I have seen and examined the patient. I reviewed the documentation, medical decision making, and treatment plan as noted by the mid-level provider above. I agree with the findings and plan of care. ANDRZEJ GONZALEZ MD, KATARZYNA B LOCKSTITCH LINING SETTER Oct 11, 2024 13:15
[2024-10-11] MEDS ORDERED: DEXTROSE 50%-WATER 50 ML DISP.SYRIN IV PRN (13:30)
[2024-10-11] MEDS ORDERED: MAGNESIUM 2GM PREMIX 50ML 50 ML IV PRN (13:30)
[2024-10-11] MEDS ORDERED: PoTASSium chl 10% ELIXIR 20MEQ 20 MEQ/15 ML UDCUP PO PRN (13:30)
[2024-10-11] MEDS ORDERED: GLUCAGON 1MG KIT 1 MG ML IM PRN (13:30)
[2024-10-11] MEDS ORDERED: PoTASSium chloRIDE 20MEQ ER 20 MEQ ERTAB PO PRN (13:30)
[2024-10-11] MEDS ORDERED: amLODIPine 2.5 MG TAB PO SCH (13:30)
--- NOTE | 2024-10-11 15:15 | NUR ---
BEDSIDE SWALLOW EVAL COMPLETED. No s/s of aspiration. Recommend regular solids, thin liquids and pills whole with liquids as tolerated. APPLICATION INTERNSHIP reviewed results and recommendations with patient and nurse Yumi. APPLICATION INTERNSHIP educated patient on risks and consequences of aspiration. Speech therapy not warranted at this time. All questions answered. Addendum: 10/11/[address] SVITLANA ROMO Amended: Links added.
--- NOTE | 2024-10-11 15:20 | NUR ---
COGNITIVE-LINGUISTIC EVALUATION COMPLETED. WITHIN FUNCTIONAL LIMITS. EVALUATION: Pt AAOX4. SPEECH, LANGUAGE, AND COGNITIVE LINGUISTICS SKILLS ARE WITHIN FUNCTIONAL LIMITS. Pt REQUESTS WANTS AND NEEDS INDEPENDENTLY WITH CLEAR SPEECH INTELLIGIBILITY. Pt COMMUNICATING AT CONVERSATIONAL LEVEL WITH NO DEFICITS IDENTIFIED AT THIS TIME. Pt COMPLETED COGNITIVE-LINGUISTIC EVALUATION WITH CORRECT AND TIMELY ANSWERS. SPEECH THERAPY NOT WARRANTED. ALL QUESTIONS ANSWERED AT THIS TIME. AUTOMOTIVE PAINTER REVIEWED RESULTS AND RECOMMENDATIONS WITH PATIENT AND NURSE JOE. Addendum: 10/11/[address] SVITLANA ROMO Amended: Links added.
[2024-10-11 16:00] VITALS: BP 153/90; PULSE 75; RESP 19; TEMP 97.9
--- NOTE | 2024-10-11 16:04 | HMCSR ---
APPROVED REPORT EXAM: Two-dimensional and M-mode echocardiogram with Doppler and color Doppler. INDICATION ICD: CVA/TIA: 2D Dimensions RVDd3.8 cmLVEF(%)59.1 (>50%)LVED Vol(simp.)103.0 mL IVSd0.9 (0.7-1.1cm)FS(%)32 %LVES Vol(simp.)53.0 mL LVDd5.7 (3.8-5.6cm)LA (2D)4.5 (1.6-4.0cm)LVEF(%, simp.)49 % PWd1.1 (0.7-1.1cm)Ao Root(2D)2.8 (2.0-3.7cm)LA ESV INDEX (BP)32.69 mL/m2 LVDs3.9 (2.5-4.0cm)LVOT diam2.5 (1.8-2.4cm) IVC diam1.4 cm Deformation Strain Apical 4-15.1 % Apical 2-13.4 % Apical 3-15.4 % Global Strain-14.6 % M-Mode Dimensions EPSS1.1 cm LA (MM)4.5 (1.6-4.0cm) Ao Root(MM)2.8 (2.0-3.7cm) Aortic Valve AoV Vmax1.1 m/Laquita Peak GR5.1 mmHgLVOT Vmax0.9 m/s AoV VTI0.2 mAo Mean GR2.6 mmHgLVOT VTI0.19 m CORNELIUS (VMAX)3.76 cm2AVA (VTI) 4.6 cm2 Mitral Valve MV E Vmax54.3 cm/sDECEL Aigh898 ms MV A Vmax54.3 cm/sP 1/2 T90 ms E/A ratio1.0MVA (PHT)2.4 cm2 TDI E/E' Medial8.4E/E' Lateral8.5 Medial E' Peak V6.46 cm/sLateral E' Peak V6.40 cm/s Pulmonary Valve PV Vmax1.0 m/sPV VTI0.21 mPV Mean GR2.5 mmHg PV Peak GR4.0 mmHg Left Ventricle The left ventricle is normal size. There is normal LV segmental wall motion. There is normal left magdalene tricular wall thickness. LVEF is 50-55%. The left ventricular diastolic function is normal. Right Ventricle The right ventricle is normal size. The right ventricular systolic function is normal. Atria The left atrium size is normal. The right atrium size is normal. Aortic Valve The aortic valve is normal in structure. No aortic regurgitation is present. There is no aortic valvu lar stenosis. Mitral Valve The mitral valve is normal in structure. Mitral regurgitation is trace. There is no mitral valve sten osis. Tricuspid Valve The tricuspid valve is normal in structure. There is trace tricuspid valve regurgitation noted. Pulmonic Valve The pulmonary valve is normal in structure. There is no pulmonic valvular regurgitation. Great Vessels The aortic root is normal in size. The IVC is normal in size and collapses >50% with inspiration. Pericardium There is no pericardial effusion. Conclusion LVEF is 50-55%. There is normal LV segmental wall motion. The aortic root is normal in size. There is no pericardial effusion.
[2024-10-11] MEDS: PoTASSium chloRIDE 20MEQ ER 20 MEQ ERTAB PO ONE (16:41)
--- NOTE | 2024-10-11 19:05 | CONS ---
CONSULTATION NOTE Date of Service: Oct 11, 2024 Reason for Consultation: eval of paresthesias Requesting Physician: Dr Perdue HISTORY OF PRESENT ILLNESS: Mr. Escobar is a 59-year-old gentleman with a history of hypertension, diabetes mellitus type 2, left ear infections, seasonal allergies, and chronic lower back pain, who presented with numbness and weakness in bilateral upper extremities, decreased facial sensation, headache, and slurred speech that started 2 days prior to admission on October 10, 2024. The patient reports experiencing tingling in both hands, which lasted until the day before admission, accompanied by some stiffness and weakness but no pain. He also experienced lightheadedness but denies other symptoms such as blurry vision or dizziness. The patient's symptoms are non-focal, suggesting a blood flow- related issue rather than a neurological one. He does not regularly check his blood pressure or blood sugar at home, indicating poor adherence to self- monitoring of his chronic conditions. On admission, the patient's blood pressure was significantly elevated at 188/93 mmHg. His hemoglobin A1c of 11 indicates poorly controlled glucose, suggesting suboptimal management of his diabetes mellitus type 2. The patient was informed that his condition was not a stroke, and he is likely to be discharged tomorrow. Medical History - Chronic lower back pain - Seasonal allergies - Left ear infections - Diabetes mellitus type 2 - Hypertension Medications and Supplements - Lisinopril 2.5 mg by mouth once daily - Aspirin 81 mg by mouth daily - Atorvastatin 40 mg by mouth daily Allergies - Seasonal allergies Social History - Substance Use: Does not regularly check blood pressure or blood sugar at home REVIEW OF SYSTEMS General: Negative for fever, chills, fatigue. HEENT: Negative for blurry vision. Cardiovascular: Positive for lightheadedness. Musculoskeletal: Positive for stiffness in hands. Neurological: Positive for numbness and weakness in bilateral upper extremities, decreased facial sensation, slurred speech. Negative for dizziness. PAST MEDICAL HISTORY: as above PAST SURGICAL HISTORY: none PAST SOCIAL HISTORY: none FAMILY HISTORY: non contributory Coded Allergies: No Known Allergies (Unverified Allergy, Unknown, 10/10/24) PHYSICAL EXAM EYES: Anicteric. Pupils equal and reactive. HENT: No oral thrush seen, moist Oral mucosa NECK: Supple, no JVD or thyromegaly. LUNGS: Good air entry. No rales, no rhonchi. CARDIOVASCULAR: S1, S2 regular. No murmur heard. ABDOMEN: Soft, non tender, bowel sounds present, no organomegaly CENTRAL NERVOUS SYSTEM: Awake, alert, oriented x 3. No focal deficits. SKIN: No rashes, no swelling. LYMPHATICS: No peripheral lymphadenopathy MUSCULOSKELETAL: No joint swelling, erythema or tenderness. EXTREMITIES: No cyanosis or clubbing BACK: No deformity, no pressure ulcer. GENITOURINARY: No dysuria or hematuria NIHSS: 0 Vital Sign (Last 24 Hours) 10/11/24 12:00 Temp 98.1 Pulse 86 Resp 19 B/P (MAP) 150/78 Pulse Ox 98 O2 Delivery Room Air* O2 Flow Rate 0 FiO2 21 LABS: Laboratory: Test 10/11/24 15:46 10/11/24 06:42 10/11/24 04:35 10/11/24 02:11 Range/Units Whole Blood Glucose 166 H 70-110 MG/DL White Blood Count 6.6 4.8-10.8 K/uL Red Blood Count 4.90 4.50-6.20 MIL/uL Hemoglobin 14.7 14.0-18.0 g/dL Hematocrit 44.4 42-54 % Mean Corpuscular Volume 90.6 79-99 fL Mean Corpuscular Hemoglobin 30.0 27.0-33.0 pg Mean Corpuscular Hemoglobin Concent 33.1 32.0-36.0 g/dL Red Cell Distribution Width 12.9 11.0-15.5 % Platelet Count 206 130-400 K/uL Mean Platelet Volume 10.0 7.5-10.5 fL Nucleated Red Blood Cells 0.0 0.0-0.19 % Fibrinogen 446 H 180-350 mg/dL Sodium Level 139 136-145 mmol/L Potassium Level 3.7 3.5-5.1 mmol/L Chloride Level 102 101-111 mmol/L Carbon Dioxide Level 31 21-32 mmol/L Blood Urea Nitrogen 7 7-18 mg/dL Creatinine 0.7 0.5-1.3 mg/dL Glomerular Filtration Rate Calc 105 >90 mL/min Random Glucose 175 H 70-105 mg/dL Total Calcium 8.8 8.5-10.1 mg/dL Phosphorus Level 4.5 2.5-4.9 mg/dL Magnesium Level 1.70 L 1.80-2.40 mg/dL Total Bilirubin 0.8 0.2-1.0 mg/dL Aspartate Amino Transf (AST/SGOT) 10 10-37 U/L Alanine Aminotransferase (ALT/SGPT) 14 12-78 U/L Alkaline Phosphatase 63 50-136 U/L Total Protein 6.8 6.0-8.3 g/dL Albumin 3.4 L 3.5-5.0 g/dL Triglycerides Level 175 30-200 mg/dL Cholesterol Level 152 <200 mg/dL LDL Cholesterol 87 0-99 mg/dL HDL Cholesterol 45 29-71 mg/dL Vitamin B12 Level 1586 H 193-986 pg/mL Folic Acid (LAB) 14.40 2-20 ng/mL Thyroid Stimulating Hormone (TSH) 3.65 0.36-3.74 uIU/mL Influenza Type A Antigen Negative For Type A NEGATIVE Influenza Type B Antigen Negative For Type B NEGATIVE SARS-CoV-2, RNA, NAAT NEGATIVE SARS CoV-2 NEGATIVE Blood Gas Specimen Type Arterial Arterial Blood pH 7.426 7.350-7.450 Arterial Blood Partial Pressure CO2 38 35-48 mmHg Arterial Blood Partial Pressure O2 73.9 L 83.0-108.0 mmHg Arterial Blood HCO3 24.6 21.0-28.0 mmol/L Arterial Blood Oxygen Saturation 95.2 94.0-98.0 % Arterial Blood Base Excess 0.4 -2.0-3.0 mmol/L Blood Gas Temperature 37.0 35.5-37.0 CELSIUS Blood Gas Vent Mode RA ROOM AIR FiO2 21.0 % Blood Gas Specimen Comment STEEL HEATER, RR Test 10/10/24 19:13 10/10/24 18:12 Range/Units Urine Color LIGHT-YELLOW YELLOW Urine Appearance CLEAR CLEAR Urine pH 6.0 5.0-8.0 Urine Specific [place] 1.007 1.001-1.031 Urine Protein NEGATIVE NEGATIVE mg/dL Urine Glucose (UA) 30 H NEGATIVE mg/dL Urine Ketones NEGATIVE NEGATIVE mg/dL Urine Occult Blood NEGATIVE NEGATIVE Urine Nitrate NEGATIVE NEGATIVE Urine Bilirubin NEGATIVE NEGATIVE mg/dL Urine Urobilinogen 0.2 0.2-1.0 mg/dL Urine Leukocyte Esterase NEGATIVE NEGATIVE Hiram/uL Urine RBC None 0-1 /HPF Urine WBC 0-1 0-1 /HPF Urine Squamous Epithelial Cells RARE 0-2 /HPF Urine Bacteria None None Seen /HPF Urine Opiates Screen NEGATIVE NEGATIVE Urine Barbiturates Screen NEGATIVE NEGATIVE Urine Phencyclidine Screen NEGATIVE NEGATIVE Urine Amphetamines Screen NEGATIVE NEGATIVE Urine Benzodiazepines Screen NEGATIVE NEGATIVE Urine Cocaine Screen NEGATIVE NEGATIVE Urine Marijuana (THC) Screen NEGATIVE NEGATIVE Immature Granulocyte % (Auto) 0.4 0-1 % Neutrophils (%) (Auto) 56.5 40.0-77.0 % Lymphocytes (%) (Auto) 34.9 21.0-51.0 % Monocytes (%) (Auto) 6.6 3.0-13.0 % Eosinophils (%) (Auto) 1.2 0.0-8.0 % Basophils (%) (Auto) 0.4 0.0-5.0 % Neutrophils # (Auto) 4.4 1.8-7.7 K/uL Lymphocytes # (Auto) 2.7 1.0-4.8 K/uL Monocytes # (Auto) 0.5 0.1-1.0 K/uL Eosinophils # (Auto) 0.09 0.00-0.70 K/uL Basophils # (Auto) 0.03 0.00-0.20 K/uL Absolute Immature Granulocyte (auto 0.03 0-1 K/uL Hemoglobin A1c 11.0 H 4.0-6.0 % Estimated Average Glucose (eAG) 269 H 70-126 mg/dL Troponin I High Sensitivity 7 4-75 ng/L DIAGNOSTICS / RADIOLOGY: CTH neg MRI brain : I reviewed the images. No strokes. (awaiting official radiology report) ASSESSMENT / PLAN: Mr. Escobar, a 59-year-old male with a history of hypertension, diabetes mellitus type 2, left ear infections, seasonal allergies, and chronic lower back pain, presented with numbness and weakness in bilateral upper extremities, decreased facial sensation, headache, and slurred speech that started 2 days prior to admission. Transient symmetrical hands paresthesias and weakness Assessment: Patient presented with numbness and weakness in bilateral upper e xtremities, decreased facial sensation, headache, and slurred speech that started 2 days prior to admission. MRI of the brain and neck without contrast was negative for acute ischemic stroke, large vessel occlusion, or significant stenosis. CT head without contrast was unremarkable. Symptoms are non-focal, suggesting a blood flow-related issue rather than a neurological one. The pa tient reported tingling in both hands, which lasted until the previous day, with some stiffness and weakness but no pain. He also experienced lightheadedness but no other symptoms like blurry vision or dizziness. Given the negative imaging and non-focal nature of symptoms, a stroke has been ruled out. Plan: - Start aspirin 81 mg PO daily - Start atorvastatin 40 mg PO daily - Likely to discharge tomorrow Hypertensive emergency Assessment: Patient has a history of hypertension. On admission, blood pressure was elevated at 188/93 mmHg. The patient does not regularly check his blood pressure at home. Plan: - Start lisinopril 2.5 mg PO once daily for blood pressure control Diabetes Mellitus Type 2 Assessment: Patient has a history of diabetes mellitus type 2. Current hemoglobin A1c is 11, indicating poorly controlled glucose. The patient does not regularly check his blood sugar at home. Plan: - Continue current diabetes management - Educate patient on importance of regular blood sugar monitoring at home Thank you for your consultation. I will sign off. MARNIE ROBERSON MD Oct 11, 2024 19:05
[2024-10-11 19:46] VITALS: O2SAT 95
[2024-10-11 20:00] VITALS: BP 127/77; PULSE 91; RESP 17; TEMP 98.1
[2024-10-11] MEDS: MAGNESIUM 2GM PREMIX 50ML 50 ML IV SCH (20:08)
[2024-10-12] VITALS: BP 130/70; PULSE 88; RESP 17; TEMP 98.2
[2024-10-12 03:59] LABS: IMMATURE GRANULOCYTE ABSOLUTE 0.01 K/uL (0-1); NUCLEATED RED BLOOD CELLS 0.0 % (0.0-0.19); PLATELET COUNT (AUTO) 217 K/uL (130-400); RED BLOOD CELL COUNT(AUTO) 5.03 MIL/uL (4.50-6.20); RED CELL DISTRIBUTION WIDTH 12.8 % (11.0-15.5); WHITE BLOOD COUNT (AUTO) 7.6 K/uL (4.8-10.8)
[2024-10-12 04:00] VITALS: BP 127/80; PULSE 85; RESP 18; TEMP 98
[2024-10-12 04:16] LABS: ASPARTATE AMINOTRANSFERASE 11.0 U/L (10-37); CREATININE 0.7 mg/dL (0.5-1.3); GLOMERULAR FILTR. RATE CALC 105.0 mL/min (>90); GLUCOSE,RANDOM 149.0 mg/dL (70-105); SODIUM SERUM 140.0 mmol/L (136-145); TOTAL PROTEIN, SERUM 7.0 g/dL (6.0-8.3); UREA NITROGEN, BLOOD 11.0 mg/dL (7-18)
--- NOTE | 2024-10-12 08:08 | HMCIMG ---
EXAMINATION: DUPLEX ULTRASOUND EXAMINATION OF THE BILATERAL CAROTID AND VERTEBRAL ARTERIES. CLINICAL HISTORY: Syncope. COMPARISON: MRA neck from the same day. TECHNIQUE: Real-time ultrasound scan of the bilateral carotid and vertebral arteries, 2-D grayscale, with color Doppler flow and spectral waveform analysis. FINDINGS: Color and spectral Doppler interrogation of the carotid vessels on the right demonstrate peak systolic velocities as follows: CCA (Proximal and distal): 67 and 63 cm/s respectively. ECA: 75 cm/s. ICA (Proximal, mid, and distal): 48, 64, and 88 cm/s respectively. Vertebral artery demonstrates antegrade flow: 39 cm/s. Right ICA/CCA ratio: 1.3. Peak systolic velocities on the left are as follows: CCA (Proximal and distal): 67 and 58 cm/s respectively. ECA: 68 cm/s. ICA (Proximal, mid, and distal): 49, 80, and 85 cm/s respectively. Vertebral artery demonstrates antegrade flow: 30 cm/s. Left ICA/CCA ratio: 1.3. Both the common carotid arteries and their branches reveal mild intimal thickening. There is a calcified plaque in the left carotid bulb without significant stenosis. IMPRESSION: Mild intimal thickening in the bilateral carotid arteries and their branches. Calcified plaque in the left carotid bulb without significant stenosis. There is no significant flow limiting lesions in the remainder of the arteries. /[place]
[2024-10-12 08:09] VITALS: BP 139/85; PULSE 92; RESP 18; TEMP 97.7
[2024-10-12] MEDS: LISINOPRIL 2.5 MG TABLET PO SCH (08:48)
[2024-10-12] MEDS ORDERED: LISI2.5T13 PO (10:45)
[2024-10-12] MEDS ORDERED: ASPI-1005 PO (10:45)
[2024-10-12] MEDS ORDERED: ATOR40TA69 PO (10:45)
--- NOTE | 2024-10-12 10:58 | DS ---
Discharge Summary Hospital Course Summary: DATE OF ADMISSION:[10/10/2024] DATE OF DISCHARGE:[10/12/2024] DISPOSITION:[Home] CONDITION:[Medically stable] CONSULTANTS:[Neurologist] FOLLOW UP APPOINTMENTS:[PCP 2 to 3 days. Neurologist no need. Patient is recommending to get a PCP in the see the where he lives and get referral for level vial marker] PROCEDURES:[None] IMAGING: report attached to summary MICROBIOLOGY: report attached to summary ACTIVITY:[Independent] HOME MEDICATIONS: see [facility] NEW MEDICATIONS:[Aspirin, atorvastatin, lisinopril] EMERGENCY INSTRUCTIONS: The patient was instructed to present to the nearest Emergency departmentr or call 911 once their symptoms will return or worsen Mall Manager(s): Patient is 59 years old male who came to emergency department for evaluation of stroke-like symptoms x2 days prior coming to hospital. Patient reported and numbness and weakness to bilateral upper extremities, decreased sensation to the face, headaches and slurred speech. 2D echo showed 50 to 55% normal function. Head CT negative. Ultrasound carotid negative. On admission neurologist was consulted and as per his recommendations start patient on aspirin 81 mg p.o. daily, start atorvastatin 40 mEq p.o. daily and start lisinopril 2.5 mg p.o. daily for blood pressure control. Today patient is cleared to be discharged home follow up with the PCP outpatient in 2 to 3 days. Patient was also advised to get the referral from the PCP for level vial marker. All the medication were prescribed to patient's sent to the pharmacy of [facility] available for 90 days as requested by the patient. Procedure(s): REVIEW OF SYSTEMS 12-point ROS reviewed with the patient. All pertinent positives mentioned above. Otherwise negative, noncontributory, non-pertinent. PHYSICAL EXAM GENERAL APPEARANCE: The patient is awake, alert, and oriented, in no acute cardiopulmonary distress. NEUROLOGICAL: Cranial nerves II-XII grossly intact. Motor is 5/5 in bilateral upper and lower extremities proximal to distal. No sensory deficits. HEENT: Face is symmetric. Pupils are equal and reactive. Extraocular movements are intact. NECK: Supple. No JVD. No thyromegaly. No submental, submandibular, pre- /postauricular, occipital or supraclavicular lymphadenopathy. CHEST: Normal chest expansion. No Telemetry. LUNGS: Absence of any rales, rhonchi or any wheezing. CARDIOVASCULAR: Regular. S1 and S2 normal. No appreciable rubs, murmurs or gallops. ABDOMEN: Soft, obese, nontender, and nondistended. There is no rebound, voluntary guarding, or rigidity. : Deferred. No Keith. EXTREMITIES: Non-edematous and not cyanotic. No clubbing. Good capillary refill. SKIN: No skin breakdown. Assessment/Plan: ASSESSMENT: Stroke-like symptoms (paresthesia and weakness to BUE, reported slow/slurred speech, decreased sensation to the face, headache)ruled out Atrophy slightly greater than expected for patient's age, per CT of head without contrast on 10/10/2024 Acute headache, POA Diabetes mellitus with hyperglycemia Anorexia, POA, recent Tirzepatide use Elevated bicarbonate per venous lab on 10/10/2021 Uncontrolled hypertension History of left ear infection History of chronic seasonal allergies/nasal congestion on chronic nasal spray Anxiety reaction Chronic lower back pain Obesity, BMI 36.2 Time spent arranging discharge: 31-60 minutes ATTESTATION BY PHYSICIAN I have seen and examined the patient. I reviewed the documentation, medical decision making, and treatment plan as noted by the mid-level provider above. I agree with the findings and plan of care. ANDRZEJ GONZALEZ MD, KATARZYNA B APRN Oct 12, 2024 10:58
[2024-10-12 11:34] VITALS: BP 154/83; PULSE 89; RESP 18; TEMP 97.7
--- NOTE | 2024-10-12 12:45 | NUR ---
DC NOTE DC INSTRUCTIONS AND FOLLOW UP APPOINTMENTS WITH E-SCRIPT GIVEN TO PT AND FAMILY MEMBERS AT BEDSIDE. 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 PT REFUSED WHEELCHAIR AND PREFER TO AMBULATE DOWNSTAIRS WITH CAR RENTAL MANAGER . PT IS DC WITH FAMILY MEMBER INTO VIA PRIVATE CAR. NO FURTHER COMMENTS OR CONCERNS AT THIS TIME.
--- NOTE | 2024-10-12 19:04 | HMCIMG ---
EXAM: MRA Neck without IV Contrast CLINICAL HISTORY: Bilateral arm paresthesia and weakness. TECHNIQUE: 3-D time of flight imaging of the neck circulation. Maximum intensity projection reconstructed imaging of the right and left carotid systems. 3D, reformatted and MPR images obtained. CONTRAST: None. COMPARISON: Carotid Doppler done on the same date. FINDINGS: Normal flow related signal is present within the common carotid arteries, carotid bifurcation and internal carotid arteries. The vertebral arteries demonstrate normal flow related signals. IMPRESSION: No hemodynamically significant abnormality in the neck arteries. /[place]
--- NOTE | 2024-10-12 19:04 | HMCIMG ---
EXAM: MR Brain Without IV Contrast CLINICAL HISTORY: Paraesthesia. Slurred speech. TECHNIQUE: Multiplanar multi-sequence MRI of the brain. CONTRAST: No. COMPARISON: CT dated 10/10/24. FINDINGS: Few, discrete FLAIR hyperintense foci noted in the white matter of the right cerebral hemisphere, likely chronic small vessel ischemic changes. No evidence of acute cortical infarction, hemorrhage, mass or mass effect. The ventricular system is normal in size, shape, and contour. No hydrocephalus. No abnormal extra-axial fluid collection is present. The marrow signal within the skull base and calvarium is intact. Small mucous retention cyst noted in the left maxillary sinus. Remaining paranasal sinuses and mastoid air cells are clear. IMPRESSION: No acute intracranial abnormality or mass.Mild chronic small vessel ischemic changes. /[place]
--- NOTE | 2024-10-12 19:04 | HMCIMG ---
EXAM: MRA of the Brain without IV Contrast CLINICAL HISTORY: Stroke like symptoms. TECHNIQUE: 3-D time of flight imaging of the intracranial circulation. Maximum intensity projection reconstructed imaging. CONTRAST: None. COMPARISON: None provided. FINDINGS: The anterior and middle cerebral arteries demonstrate normal flow related signal. The anterior communicating artery is intact. Bilateral posterior communicating arteries are identified. The posterior cerebral arteries are intact. Vertebral and basilar arteries are unremarkable. Bilateral intracranial internal carotid arteries demonstrate normal flow related signals. No aneurysm (greater than 4 mm), arteriovenous lesion or hemodynamically significant stenosis is identified. IMPRESSION: Negative MRA of the brain. /[place]
== END 2024-10-12 12:45 | disposition home or self-care (01) | DRG 305 ==
LOC: EDH 17:46 → EDHIP 19:39 → 3BH 10-11 11:55
PROVIDERS: ADMIT Internal Medicine; ATTEND Internal Medicine
DX: I16.1 Hypertensive emergency (principal); E11.65 Type 2 diabetes mellitus with hyperglycemia; G89.29 Other chronic pain; E66.9 Obesity, unspecified; I10 Essential (primary) hypertension; M54.50 Low back pain, unspecified; F41.1 Generalized anxiety disorder; Z68.36 Body mass index [BMI] 36.0-36.9, adult; Z79.82 Long term (current) use of aspirin; Z79.899 Other long term (current) drug therapy
CPT/HCPCS: 36415; 36600; 70450; 70544; 70547; 70551; 80048; 80053; 80061; 80305; 81001; 82607; 82746; 82803; 82948; 83036; 83735; 84100; 84443; 84484; 85025; 85027; 85384; 87635; 87804; 92522; 92610; 93005; 93306; 93880; 99291; G0378; J1815; J3475; J7030